=== PATIENT | male | born 1960 | race African-American/Black ===

== ENCOUNTER 2022-07-16 06:07 | Emergency (ER) | payer SELFPAY ==
[~2022-07-16] VITALS: Ht 180.3 cm; Wt 90.0 kg
[2022-07-16] MEDS ORDERED: KETOROLAC 60MG/2ML VIAL IM ONE (07:00)
[2022-07-16] MEDS ORDERED: ACETAMINOPHEN WITH CODEINE 300/30MG TABLET PO ONE (07:00)
[2022-07-16 07:52] VITALS: BP 180/90
[2022-07-16] MEDS ORDERED: T3 PO (08:18)
[2022-07-16] MEDS ORDERED: IBUP-2028 PO (08:18)
== END 2022-07-16 08:39 | disposition home or self-care (01) ==
LOC: ER 06:07
DX: M48.57XA Collapsed vertebra, not elsewhere classified, lumbosacral region, initial encounter for fracture (principal); R03.0 Elevated blood-pressure reading, without diagnosis of hypertension; Z85.46 Personal history of malignant neoplasm of prostate
CPT/HCPCS: 72100; 96372; 99283; J1885

== ENCOUNTER 2025-04-02 13:33 | Emergency (ER) | payer OTHER ==
[~2025-04-02] VITALS: Ht 180.3 cm; Wt 84.0 kg
[~2025-04-02 13:33] MED LIST: IBUP-2028 PO; T3 PO
[2025-04-02 13:35] VITALS: O2SAT 91
[2025-04-02 13:57] LABS: HEMATOCRIT. 50.4 % (42.0-52.0); HEMOGLOBIN. 16.2 g/dL (14.0-18.0); MEAN PLATELET VOLUME 6.8 fl (7.4-10.4); PLATELET 282 x1000/uL (130-400); RED BLOOD CELL COUNT 5.29 mill/uL (4.7-6.1); RED CELL DISTRIBUTION WIDTH 14.4 % (11.6-14.6)
[2025-04-02 14:11] LABS: CREATININE 1.0 mg/dL (0.6-1.3); UREA NITROGEN BLOOD 12 mg/dL (9-23)
[2025-04-02 14:13] LABS: ASPARTATE AMINOTRANSFERASE 19 IU/L (<34); BILIRUBIN DIRECT < 0.1 mg/dL (<=3.0); BILIRUBIN TOTAL 0.4 mg/dL (0.1-1.0); PROTEIN TOTAL 7.7 g/dL (6.0-8.3); TROPONIN I HIGH SENSITIVITY < 4 ng/L (3.0-53)
[2025-04-02 14:15] LABS: BAND% 7.0 % (1.0-6.0); EOSINOPHILS % MANUAL 2.0 % (0.0-5.0); LYMPHOCYTES % MANUAL 7.0 % (20.0-50.0); MONOCYTES % MANUAL 17.0 % (2.0-8.0); NEUTROPHILS % MANUAL 67.0 % (45.0-75.0); PLATELET ESTIMATE NORMAL
[2025-04-02 15:15] VITALS: BP 137/94; PULSE 98; RESP 28; TEMP 36.9; O2SAT 97
[2025-04-02 16:02] LABS: TROPONIN I HIGH SENSITIVITY < 4 ng/L (3.0-53)
== END 2025-04-02 16:05 | disposition left against medical advice (07) ==
LOC: ER 13:34 → CMPBEDREQ 18:32
DX: J96.01 Acute respiratory failure with hypoxia (principal); J45.909 Unspecified asthma, uncomplicated
CPT/HCPCS: 36415; 71045; 80048; 80076; 84484; 85025; 93005; 99291